=== PATIENT | male | born 1990 | race African-American/Black ===

== ENCOUNTER 2023-10-12 22:37 | Emergency (ER) | payer MEDICAID, SELFPAY ==
[2023-10-12] MEDS ORDERED: cefTRIAXone (ROCEPHIN) 500 MG VIAL ONE (23:18)
[2023-10-12] MEDS ORDERED: Sterile Water 10 ML ONE (23:19)
[2023-10-12 23:26] LABS: Bilirubin Neg (Negative); Blood, Urine Negative (Negative); Clarity Clear (Clear); Glucose, Urine (Dipstick) Normal (Negative); Ketone, Urine 5 mg/dL (Negative); Leukocyte 100 (Negative); Nitrite Negative (Negative); Protein, Urine (Dipstick) 15 mg/dl (Neg-Trace); Specific Gravity, Urine 1.015 (1.005-1.030); Urobilinogen 12 mg/dL (Less than 2)
[2023-10-12 23:34] LABS: Bacteria/HPF None Seen HPF (None Seen); CAUTI Indications for Culture Dysuria,urgency,freq; RBC/HPF 0-3 HPF (0-3); Squamous Epithelial 0-3 HPF (0-3)
[2023-10-12 23:35] LABS: Urine Culture Reflex No No
[2023-10-13 19:57] LABS: Chlam.trachomatis by PCR,Urine Not Detected (NotDetected); GC N.gonorrhoeae PCR,UrineVOID Not Detected (NotDetected)
== END 2023-10-12 23:35 | disposition home or self-care (01) ==
LOC: CSHERS 22:37
DX: N48.29 Other inflammatory disorders of penis (principal)
CPT/HCPCS: 81001; 87491; 87591; 96372; 99283; J0696

== ENCOUNTER 2023-10-15 09:17 | Emergency (ER) | payer SELFPAY ==
[2023-10-15] MEDS ORDERED: Bicillin LA 2.4 MILL.UNITS/4 ML SYRINGE IM SCH (10:15)
[2023-10-15 10:55] LABS: Syphilis Antibody Nonreactive (Nonreactive); Syphilis Antibody Index 0.04 S/CO (<1.00 Non-Reactive)
== END 2023-10-15 10:30 | disposition home or self-care (01) ==
LOC: CSHERS 09:17
DX: N48.89 Other specified disorders of penis (principal)
CPT/HCPCS: 36415; 86780; 96372; 99283; J0561